=== PATIENT | female | born 1990 | race Two or more races ===

== ENCOUNTER 2024-05-09 12:21 | Inpatient (IN) | payer BC, SELFPAY ==
--- NOTE | 2024-05-06 07:30 | ESHP_ITS ---
RE: JAH SALINAS : 1990 DATE OF ADMISSION: 05/05/2024 HISTORY OF PRESENT ILLNESS: This is a 33-year-old 6 para 3-0-2-3 with due date of 05/07/2024 with intrauterine at 39 weeks and 5 days, who presents to labor and delivery complaining of contractions and was noted to be 4 cm dilated. The patient was seen in the office on 05/02/2024 and at that time, her exam is also 4 cm dilated. The patient reports contractions every 5-10 minutes. She is currently ambulating on the floor to determine whether there is progression of dilation and whether she will be admitted. She denies any leaking or bleeding. She reports normal movement. Her care was complicated by hypothyroidism, for which she takes levothyroxine and has had serial thyroid function tests throughout her , which have been in the normal range. She had a mild COVID-19 infection on 12/14/2023, for which she took Paxlovid. She has had iron deficiency anemia throughout her and has been taking oral iron. Early in her , she had a subchorionic hemorrhage, which resolved as the progressed. She was also noted to have ovarian cyst on the right side measuring 5.1 x 5.3 cm in the first trimester with no subsequent change in the size of the cyst throughout her . MEDICATIONS: 1. multivitamin 1 p.o. daily. 2. Levothyroxine 50 mcg 1 p.o. daily. 3. Ferrous sulfate 325 mg 1 p.o. daily. SOCIAL HISTORY: She is . She denies any alcohol, drug use or smoking. FAMILY HISTORY: Denies. PAST MEDICAL HISTORY: Cervical dysplasia, polycystic ovarian syndrome, endometriosis, hypothyroidism, rubella nonimmune, iron deficiency anemia, and COVID-19 infection. OBSTETRIC HISTORY: Three previous full-term, normal vaginal deliveries and two spontaneous abortions. PAST SURGICAL HISTORY: Cryotherapy of the cervix in 2013. REVIEW OF SYSTEMS: She denies any chest pain, palpitations, cough, fever, shortness of breath or lower extremity pain. PHYSICAL EXAMINATION: VITAL SIGNS: Blood pressure 110/70, heart rate 88, respirations 18, and temperature is 98.2. HEENT: Oropharynx and sclerae are clear. LUNGS: Clear to auscultation bilaterally. HEART: Regular rate and rhythm. ABDOMEN: Gravid, term size consistent with estimated weight 7-3/4 pounds. PELVIC: See RN notes. EXTREMITIES: Nontender. SKIN: No gross rashes or lesions. NEUROLOGIC: No focal deficit. ASSESSMENT AND PLAN: Intrauterine at 39 weeks and 5 days, labor. Anticipate spontaneous vaginal delivery. Informed consent was obtained. The patient was made aware of the risks, complications, alternatives, and benefits of operative vaginal delivery and delivery and agrees with these modes of delivery if indicated. DT: 21:06:17 TT: 22:08:00 Ref: [id number] - TID: [id number]
[2024-05-09] VITALS (95 sets, daily range): BP systolic 0–129; BP diastolic 0–81; PULSE 78–111; RESP 17–18; TEMP 36.5–36.8; O2SAT 88–100; BMI 35.9
[2024-05-09 14:20] LABS: Basophils % (Auto) 0 % (0-2.5); Eosinophils % (Auto) 1 % (0-10); Hematocrit 37.9 % (36.0-46.0); Hemoglobin 13.4 g/dL (12.0-16.0); Immature Granulocytes % (Auto) 1 % (0-0); Immature Granulocytes Auto 0.03 Thou/mm3 (0.00-0.00); Lymphocytes # (Auto) 1.2 Thou/mm3 (1.0-4.8); Lymphocytes % (Auto) 19 % (10-50); Mean Corpuscular HGB Conc 35.4 g/dl (31.0-37.0); Mean Corpuscular Hemoglobin 31.8 pg (25.0-35.0); Mean Corpuscular Volume 90 fL (80-100); Monocytes # (Auto) 0.5 Thou/mm3 (0.0-0.8); Monocytes % (Auto) 8 % (0-12); Neutrophils # (Auto) 4.6 Thou/mm3 (1.8-7.7); Neutrophils % (Auto) 72 % (37-80); Nucleated Red Blood Cell % 0 /100 WBC (0); Platelet Count 198 Thou/mm3 (140-440); RDW Standard Deviation 51.8 fL (36.4-46.3); Red Blood Count 4.21 Miln/mm3 (4.00-5.20); White Blood Count 6.3 Thou/mm3 (3.6-11.0)
[2024-05-09 14:54] LABS: Syphilis Nonreactive (Nonreactive)
[2024-05-09] MEDS: MISOPROSTOL 50 mCg TABLET PO (15:14)
--- NOTE | 2024-05-09 17:27 | ESHP_ITS ---
RE: JAH SALINAS : 1990 DATE OF ADMISSION: 05/09/2024 HISTORY OF PRESENT ILLNESS: This is a 33-year-old 6, para 3-0-2-3, with due date of 05/07/2024 with intrauterine at 40 weeks and 2 days, who presents to labor and delivery for induction of labor for postdates. The patient reports occasional contraction. She denies any leaking or bleeding. She reports normal movement. Her care was complicated by hypothyroidism for which she takes levothyroxine and has had serial thyroid function tests throughout her , which has been in the normal range. She had a mild COVID-19 infection on 12/14/2023 for which she took Paxlovid. She has had iron deficiency anemia throughout her and has been taking oral iron earlier in her . She had a subchorionic hemorrhage, which resolved as the progressed. She was also noted to have an ovarian cyst on the right side measuring 5.1 x 5.3 cm in the first trimester with no subsequent change in the size of the cysts throughout her . HOME MEDICATIONS: Levothyroxine 50 mcg 1 p.o. daily, vitamin 1 p.o. daily, ferrous sulfate 325 mg 1 p.o. daily. SOCIAL HISTORY: She is . She denies any alcohol, drug use or smoking. PAST MEDICAL HISTORY: Cervical dysplasia, polycystic ovarian syndrome, endometriosis, hypothyroidism, iron deficiency anemia and COVID-19 infection. FAMILY HISTORY: Denies. OBSTETRIC HISTORY: Three previous full-term, normal vaginal deliveries and two spontaneous abortions. PAST SURGICAL HISTORY: Cryotherapy of the cervix 2013. REVIEW OF SYSTEMS: She denies any chest pain, palpitations, cough, fever, shortness of breath, or lower extremity pain. She denies any headache, change in vision, or right upper quadrant pain. PHYSICAL EXAMINATION: VITAL SIGNS: Blood pressure 116/76, heart rate 97, respirations 18, temperature is 98.8. HEENT: Oropharynx and sclerae are clear. LUNGS: Clear to auscultation bilaterally. CARDIOVASCULAR: Heart regular rate and rhythm. ABDOMEN: Gravid, term size consistent with estimated weight 7-3/4 pounds. PELVIC: See RN notes. EXTREMITIES: Nontender. SKIN: No gross rashes or lesions. NEUROLOGIC: No focal deficit. ASSESSMENT: Intrauterine at 40 weeks and 2 days, postdates. PLAN: Induction of labor. Anticipate spontaneous vaginal delivery. Informed consent was obtained. The patient made aware of the risks, complications, alternatives, benefits of operative vaginal delivery and delivery and agrees with these modes of delivery if indicated. DT: 17:01:37 TT: 17:26:00 Ref: [id number] - TID: [id number]
[2024-05-09] MEDS: RINGERS LACTATED 1000 ML 1,000 ML 999 ML IV (22:22)
[2024-05-10] VITALS (145 sets, daily range): BP systolic 0–134; BP diastolic 0–78; PULSE 61–109; RESP 16–20; TEMP 36.1–37; O2SAT 82–100
[2024-05-10] MEDS: RINGERS LACTATED 1000 ML 1,000 ML 100 ML IV (00:22)
[2024-05-10] MEDS: [UNRECOGNIZED DRUG - OTHER] IV (00:29)
[2024-05-10] MEDS: OXYTOCIN in NS 30 units 30 UNIT/500 ML BAG IV (00:30)
--- NOTE | 2024-05-10 00:30 | PC.NURSE ---
Pit augmentation initiated at 0029, 1mu/min, witnessed by Nicole WINTER
[2024-05-10] MEDS: OXYTOCIN in NS 20 units 20 UNIT/1,000 ML BAG 125 UNIT IV ×2 (06:24→11:59)
--- NOTE | 2024-05-10 06:28 | PD.LDDS ---
DS: Providers Provider Date of admission: 05/09/24 12:21 Primary care physician: Physician No Primary/Family Admitting Provider: Sanchez Austin MD Attending Provider on Admission: Sanchez Austin MD Attending Provider on DC: Sanchez Austin MD Discharging Provider: Sanchez Austin MD DS: Diagnosis Problem List Completed Was Problem List Reviewed/Reconciled?: Yes Summary/Hosp Course Time Spent with Patient Time attestation: Total time spent providing and/or coordinating discharge services: Exam Vital Signs Temp Pulse Resp BP Pulse Ox 98.5 F 93 16 106/60 97 05/10/24 03:55 05/10/24 06:23 05/10/24 03:55 05/10/24 06:23 05/10/24 06:25 Discharge Plan Plan Patient Disposition: HOME (Self Care) Patient condition on transfer: Stable Prescriptions/Referrals Prescriptions/Med Rec: No Action Vitamin * 1 EACH tablet 1 tab PO QDAY Qty: 0 levothyroxine 50 mcg tablet 50 mcg PO DAILY Patient Comments: TAKE 1 TABLET BY MOUTH EVERY DAY Referrals: No Primary/Family,Physician [Primary Care Provider] - Patient/Caregiver Discharge Instructions Discharge Activity: activity as tolerated Other Discharge Activity Instructions:: Follow up office 6 weeks. Print Language: Latvian Stand Alone Forms: [facility] Award Info., Patient Portal Info Letter Planned Discharge Date 05/11/24
[2024-05-10] MEDS: LEVOTHYROXINE SODIUM 25 MCG TABLET 50 MCG PO (07:41)
--- NOTE | 2024-05-10 09:11 | PD.LDDELS ---
Data (Walker) Data Hx Section: No : 6 Para: 3 Term: 3 : 0 : 2 Delivery Data (Walker) Labor Data Induction: Yes ROM Date: 05/10/24 ROM Time: 05:38 Rupture Type: SROM Amniotic Fluid: Clear Delivery Data EDC: 05/07/24 EDC calculated by:: LMP/early US confirmation Labor Onset Stage 1 Date: 05/09/24 Labor Onset Stage 1 Time: 23:45 Labor Onset Stage 2 Date: 05/10/24 Labor Onset Stage 2 Time: 05:56 Delivery Date: 05/10/24 Delivery Time: 06:16 Gestational age (weeks): 40 Gestational age (days): 3 Placenta Delivery Date: 05/10/24 Placenta Delivery Time: 06:23 Delivered by: Sanchez Austin Delivery nurse: Devora Norris Other staff at delivery: Nursery Nurse Other staff at delivery: 2nd Nurse Other staff at delivery: Katie Morales Other staff at delivery: Nicole Chavarria Delivery Method Delivery: Vaginal Delivery Type: Spontaneous Presentation: Vertex Position: OA Anesthesia Type Primary Anesthesia: Epidural Placenta Placenta Delivery: Spontaneous Placenta Cultures Obtained: No Placenta Sent for Examination: No Cord Sample: Cord Blood Obtained Episiotomy Episiotomy: None EBL Estimated blood loss (ml): 200 Umbilical Cord Umbilical Vessels: 3 Nuchal Cord: x1 Loosely Body Cord: None Additional Procedures None Complications Complications: None Data (Walker) Data Gender: Female Identification Band Number: [id number] Infant Weight Grams: 3500 1 Minute Total: 8 5 Minute Total: 9
[2024-05-10] MEDS: IBUPROFEN TAB 400 MG TABLET 800 MG PO (11:35)
[2024-05-10 13:00] LABS: Basophils % (Auto) 0 % (0-2.5); Eosinophils % (Auto) 0 % (0-10); Hemoglobin 11.9 g/dL (12.0-16.0); Immature Granulocytes % (Auto) 0 % (0-0); Immature Granulocytes Auto 0.03 Thou/mm3 (0.00-0.00); Lymphocytes # (Auto) 1.5 Thou/mm3 (1.0-4.8); Lymphocytes % (Auto) 18 % (10-50); Mean Corpuscular Hemoglobin 30.6 pg (25.0-35.0); Mean Corpuscular Volume 90 fL (80-100); Monocytes # (Auto) 0.6 Thou/mm3 (0.0-0.8); Monocytes % (Auto) 7 % (0-12); Neutrophils # (Auto) 6.2 Thou/mm3 (1.8-7.7); Neutrophils % (Auto) 73 % (37-80); Nucleated Red Blood Cell % 0 /100 WBC (0); Platelet Count 173 Thou/mm3 (140-440); RDW Standard Deviation 49.4 fL (36.4-46.3); Red Blood Count 3.89 Miln/mm3 (4.00-5.20); White Blood Count 8.5 Thou/mm3 (3.6-11.0)
--- NOTE | 2024-05-10 16:41 | PC.NURSE ---
Dr. Austin called SBAR given, v/s within baseline, and small amount of lochia noted, no clots, fundus firm, MD made aware of IV being infiltrated for the second time, post h/h reported, Per MD RN can discontinue N/S with pitocin.
[2024-05-11 03:50] VITALS: BP 105/73; PULSE 69; RESP 20; TEMP 36.3; O2SAT 97
[2024-05-11] MEDS: LEVOTHYROXINE SODIUM 25 MCG TABLET 50 MCG PO (06:31)
--- NOTE | 2024-05-11 07:36 | ESPR_ITS ---
RE: JAH SALINAS : 1990 DATE OF SERVICE: 05/11/2024 S: day #1, the patient denies any problem or complaint. She is voiding. She is ambulating. She is tolerating diet. She is passing flatus. She denies any excessive vaginal bleeding. She denies any dizziness or lightheadedness. She denies any chest pain, palpitation, shortness of breath, or lower extremity pain. PHYSICAL EXAMINATION: Vital Signs: Blood pressure is 105/73, heart rate 69, respirations 20, temperature is 97.4, pulse oximetry is 97% on room air. Lungs: Clear to auscultation bilaterally. Heart: Regular rate and rhythm. Abdomen: Fundus is firm. Extremities: Nontender. LABORATORY DATA: Hemoglobin predelivery is 13.4, post-delivery is 11.9. A: day #1, status post spontaneous vaginal delivery. P: Discharge home. Discharge instructions given. Followup in the office in 6 weeks. DT: 07:04:37 TT: 07:35:00 Ref: [id number] - TID: [id number]
[2024-05-11 07:44] VITALS: BP 108/73; PULSE 74; RESP 18; TEMP 36.6; O2SAT 97
== END 2024-05-11 08:22 | disposition home or self-care (01) | DRG 807 ==
LOC: S4SX 05-10 06:26 → S4NX 05-10 09:12
PROVIDERS: Admitting Provider Specialist; Visit Provider Specialist
DX: O48.0 Post-term pregnancy (principal); Z37.0 Single live birth; Z3A.40 40 weeks gestation of pregnancy; E03.9 Hypothyroidism, unspecified; O99.284 Endocrine, nutritional and metabolic diseases complicating childbirth; N83.201 Unspecified ovarian cyst, right side; O34.83 Maternal care for other abnormalities of pelvic organs, third trimester; O69.81X0 Labor and delivery complicated by cord around neck, without compression, not applicable or unspecified; Z86.16 Personal history of COVID-19
CPT/HCPCS: 36415; 59409; 85025; 86780; 86850; 86900; 86901; 94762; J2590; J2795; J3010; J7120; A9270

== ENCOUNTER → 2024-06-20 | Outpatient (CLI) | payer BC, SELFPAY ==
[2024-06-21 08:52] LABS: Free T4 (Free Thyroxine) 0.91 ng/dL (0.89-1.76); Thyroid Stimulating Hormone 1.08 uIU/mL (0.55-4.78)
== END | disposition home or self-care (01) ==
LOC: SLDO 17:19
PROVIDERS: Referring Provider Specialist; Visit Provider Specialist
DX: E03.9 Hypothyroidism, unspecified (principal)
CPT/HCPCS: 36415; 84439; 84443

== ENCOUNTER → 2025-02-03 | Outpatient (CLI) | payer BC, SELFPAY ==
[2025-02-03 13:26] LABS: Glucose Estimated Average 100 mg/dL (80-131); Hemoglobin A1C 5.1 % Hgb (4.8-6.0)
[2025-02-03 16:20] LABS: Thyroid Stimulating Hormone 1.03 uIU/mL (0.55-4.78)
== END | disposition home or self-care (01) ==
LOC: COPL 11:47
PROVIDERS: PCP Family Medicine; Referring Provider Nurse Practitioner Family; Visit Provider Nurse Practitioner Family
DX: E11.9 Type 2 diabetes mellitus without complications (principal); E03.9 Hypothyroidism, unspecified
CPT/HCPCS: 36415; 83036; 84443

== ENCOUNTER → 2025-03-21 | Outpatient (CLI) | payer BC, SELFPAY ==
[2025-03-21 12:40] LABS: Collection Type, Urine Clean Catch
[2025-03-21 13:13] LABS: Basophils # (Auto) 0.0 Thou/mm3 (0.0-0.2); Basophils % (Auto) 1 % (0-2.5); Eosinophils # (Auto) 0.1 Thou/mm3 (0.0-0.5); Eosinophils % (Auto) 1 % (0-10); Hematocrit 39.4 % (36.0-46.0); Hemoglobin 12.9 g/dL (12.0-16.0); Immature Granulocytes Auto 0.01 Thou/mm3 (0.00-0.00); Lymphocytes # (Auto) 2.5 Thou/mm3 (1.0-4.8); Lymphocytes % (Auto) 43 % (10-50); Mean Corpuscular HGB Conc 32.7 g/dl (31.0-37.0); Mean Corpuscular Hemoglobin 29.8 pg (25.0-35.0); Mean Corpuscular Volume 91 fL (80-100); Monocytes # (Auto) 0.4 Thou/mm3 (0.0-0.8); Monocytes % (Auto) 6 % (0-12); Neutrophils # (Auto) 2.8 Thou/mm3 (1.8-7.7); Neutrophils % (Auto) 49 % (37-80); Nucleated Red Blood Cell # 0.00 Thou/mm3 (0.00-0.00); Nucleated Red Blood Cell % 0 /100 WBC (0); Platelet Count 250 Thou/mm3 (140-440); RDW Standard Deviation 42.6 fL (36.4-46.3); Red Blood Count 4.33 Miln/mm3 (4.00-5.20); White Blood Count 5.8 Thou/mm3 (3.6-11.0)
[2025-03-21 13:33] LABS: Alanine Aminotransferase 17 U/L (10-49); Albumin, Serum 4.4 gm/dL (3.5-5.0); Albumin/Globulin Ratio 1.6 (1.2-2.2); Alkaline Phosphatase 60 U/L (46-116); Anion Gap 10 (7-16); Aspartate Amino Transferase 20 U/L (0-34); BUN/Creatinine Ratio 12 Ratio (12-20); Bilirubin,Total 0.5 mg/dL (0.3-1.2); Blood Urea Nitrogen 7 mg/dL (9-23); Calcium 9.1 mg/dL (8.3-10.6); Calcium (Corrected) 9.1 mg/dL (8.5-10.1); Carbon Dioxide 25.6 mMol/L (20.0-31.0); Cardiac Risk Estimate 2.9 RATIO (3.7-5.6); Chloride 106 mMol/L (98-107); Cholesterol 141 mg/dL (132-200); Creatinine (Component) 0.6 mg/dL (0.6-1.3); Globulin 2.7 gm/dL (2.3-3.5); Glucose 83 mg/dL (74-106); HDL Cholesterol 48 mg/dL (40-60); LDL Cholesterol,Calculated 78 mg/dL (0-130); Osmolality,Calculated 280 (275-295); Potassium 3.7 mMol/L (3.4-5.1); Sodium 142 mMol/L (136-145); Total Protein 7.1 gm/dL (5.7-8.2); Triglycerides 77 mg/dL (30-150); eGFR > 60 See Note
[2025-03-21 13:34] LABS: Bilirubin,Urine Negative (Negative); Blood,Urine Negative (Negative); Clarity,Urine Clear (Clear/Hazy); Color,Urine Lt-Yellow (Lt Yel-Yel); Culture Indicated,Urine Not Indicated; Glucose, Urine Negative (Negative); Ketones,Urine Negative (Negative); Leukocyte Esterase,Urine Negative (Negative); Nitrite,Urine Negative (Negative); PH,Urine 6.0 (5.0-7.0); Protein,Urine Negative (Neg - Trace); RBC,Urine 1 /hpf (0-3); Specific Gravity,Urine 1.016 (1.001-1.035); Squamous Epithelial Cell,Urine 1 /hpf (0-5); Urobilinogen,Urine Negative mg/dL (0.0-1.0); WBC,Urine 1 /hpf (0-5)
[2025-03-21 13:35] LABS: Vitamin D 25 Hydroxy Total 21.9 ng/mL (7.3-40.2)
== END | disposition home or self-care (01) ==
LOC: COPL 12:03
PROVIDERS: PCP Nurse Practitioner Family; Referring Provider Nurse Practitioner Family; Visit Provider Nurse Practitioner Family
DX: Z00.00 Encounter for general adult medical examination without abnormal findings (principal); E55.9 Vitamin D deficiency, unspecified; N39.0 Urinary tract infection, site not specified; E03.9 Hypothyroidism, unspecified; Z79.899 Other long term (current) drug therapy; Z13.29 Encounter for screening for other suspected endocrine disorder; Z13.220 Encounter for screening for lipoid disorders
CPT/HCPCS: 36415; 80053; 80061; 81001; 82306; 85025

== ENCOUNTER → 2025-05-25 | Outpatient (CLI) | payer BC, SELFPAY ==
[2025-05-25 14:50] LABS: Collection Type, Urine Clean Catch
[2025-05-25 16:09] LABS: Amphetamine/Methamp Scrn,U Negative (Negative); Barbiturate Screen,Urine Negative (Negative); Benzodiazepines Screen,Urine Negative (Negative); Benzoylecgonine Screen, Ur Negative (Negative); Fentanyl Screen,Urine Negative (Negative); Opiate Screen,Urine Negative (Negative); THC Screen,Urine Negative (Negative)
[2025-05-25 16:10] LABS: Bilirubin,Urine Negative (Negative); Blood,Urine Negative (Negative); Color,Urine Yellow (Lt Yel-Yel); Glucose, Urine Negative (Negative); Ketones,Urine Negative (Negative); Leukocyte Esterase,Urine Negative (Negative); Nitrite,Urine Negative (Negative); PH,Urine 6.0 (5.0-7.0); Protein,Urine 1+ (Neg - Trace); RBC,Urine 8 /hpf (0-3); Specific Gravity,Urine 1.035 (1.001-1.035); Squamous Epithelial Cell,Urine 10 /hpf (0-5); Urobilinogen,Urine Negative mg/dL (0.0-1.0); WBC,Urine 5 /hpf (0-5)
[2025-05-25 16:17] LABS: Clarity,Urine Hazy (Clear/Hazy)
[2025-05-26 12:02] LABS: BVAG Candida Negative (Negative); Bacterial Vaginosis Markers Negative (Negative); Candida glabrata Negative (Negative); Candida krusei PCR Negative (Negative); Trichomonas Negative (Negative)
== END | disposition home or self-care (01) ==
LOC: SLDO 14:26
PROVIDERS: Referring Provider Physician Assistant Medical; Visit Provider Physician Assistant Medical
DX: Z34.81 Encounter for supervision of other normal pregnancy, first trimester (principal); B37.89 Other sites of candidiasis; N76.0 Acute vaginitis; A59.01 Trichomonal vulvovaginitis
CPT/HCPCS: 80307; 81001; 81514; 87086

== ENCOUNTER → 2025-05-29 | Outpatient (CLI) | payer BC, SELFPAY ==
[2025-05-29 08:00] LABS: Quantiferon-TB* See Sep Rpt
[2025-05-29 08:37] LABS: Basophils # (Auto) 0.0 Thou/mm3 (0.0-0.2); Basophils % (Auto) 0 % (0-2.5); Eosinophils # (Auto) 0.1 Thou/mm3 (0.0-0.5); Eosinophils % (Auto) 1 % (0-10); Hematocrit 39.9 % (36.0-46.0); Hemoglobin 13.2 g/dL (12.0-16.0); Immature Granulocytes Auto 0.02 Thou/mm3 (0.00-0.00); Lymphocytes # (Auto) 1.8 Thou/mm3 (1.0-4.8); Lymphocytes % (Auto) 26 % (10-50); Mean Corpuscular HGB Conc 33.1 g/dl (31.0-37.0); Mean Corpuscular Hemoglobin 30.2 pg (25.0-35.0); Mean Corpuscular Volume 91 fL (80-100); Monocytes # (Auto) 0.4 Thou/mm3 (0.0-0.8); Monocytes % (Auto) 6 % (0-12); Neutrophils # (Auto) 4.5 Thou/mm3 (1.8-7.7); Neutrophils % (Auto) 66 % (37-80); Nucleated Red Blood Cell # 0.00 Thou/mm3 (0.00-0.00); Nucleated Red Blood Cell % 0 /100 WBC (0); Platelet Count 244 Thou/mm3 (140-440); RDW Standard Deviation 45.1 fL (36.4-46.3); Red Blood Count 4.37 Miln/mm3 (4.00-5.20); White Blood Count 6.8 Thou/mm3 (3.6-11.0)
[2025-05-29 08:58] LABS: Creatinine (Component) 0.5 mg/dL (0.6-1.3); Free T4 (Free Thyroxine) 1.06 ng/dL (0.89-1.76); Glucose 91 mg/dL (74-106); Thyroid Stimulating Hormone 2.34 uIU/mL (0.55-4.78); eGFR > 60 See Note
[2025-05-29 09:09] LABS: Glucose Estimated Average 105 mg/dL (80-131); Hemoglobin A1C 5.3 % Hgb (4.8-6.0)
[2025-05-29 09:41] LABS: Beta HCG,Quantitative 27200 mIU/mL (<5.0)
[2025-05-29 13:15] LABS: Hepatitis B Surface Antigen Non Reactive (Non React); Rubella, IgG Antibody Equivocal
[2025-06-01 13:49] LABS: HCV RNA, PCR <15 NOT DETECTED IU/mL
[2025-06-02 07:46] LABS: HCV RNA, PCR Log IU <1.18 NOT DETECTED Log IU/mL; HIV Ag/Ab, 4th Gen NON-REACTIVE
== END | disposition home or self-care (01) ==
LOC: COPL 07:40
PROVIDERS: PCP Physician Assistant Medical; Referring Provider Physician Assistant Medical; Visit Provider Physician Assistant Medical
DX: Z34.81 Encounter for supervision of other normal pregnancy, first trimester (principal); E03.9 Hypothyroidism, unspecified
CPT/HCPCS: 36415; 82565; 82947; 83036; 84439; 84443; 84702; 85025; 86480; 86762; 86850; 86900; 86901; 87340; 87389; 87522

== ENCOUNTER → 2025-06-01 | Outpatient (CLI) | payer BC, SELFPAY | END | disposition home or self-care (01) | LOC: SLDO 14:05 | PROVIDERS: Referring Provider Physician Assistant Medical; Visit Provider Physician Assistant Medical | DX: R30.0 Dysuria (principal); B37.89 Other sites of candidiasis; N76.0 Acute vaginitis; A59.01 Trichomonal vulvovaginitis | CPT/HCPCS: 81514; 87077; 87086; 87186 ==